=== PATIENT | male | born 1940 | race Caucasian/White ===

== ENCOUNTER 2019-03-06 11:40 | Inpatient (IN) | payer OTHER ==
[~2019-03-06] VITALS: Ht 182.9 cm; Wt 90.7 kg
--- NOTE | 2019-03-06 11:56 | NUR ---
SE RECIBE PTE ALERTA Y ORIENATDO X3 QUIEN REFIERE DOLOR ABDOMINAL Y VOMITOS X2 HOY. SE ML S/V Y SE UBICA PTE EN AREA DE OBSERVACION.
--- NOTE | 2019-03-06 13:08 | NUR ---
PACIENTE ALERTA Y ORIENTADO X3, CON BUEN PATRON RESPIRATORIO Y SIGNOS VITALES ESTABLES, REFIERE LEVE DOLOR EN EL ABDOMEN. SE ABRE VENA CON ANGIO #20, SE ML MUESTRAS BAJO MEDIDAS ASEPTICAS. SE ADMINISTRA MEDICAMENTO LIVIA ORDENADO, Y SE COLOCA VIRGIL A BAJAR A 150ML/HR. SE ROLAND TRANQUILO EN JOHNNY.
--- NOTE | 2019-03-06 16:20 | NUR ---
SE RECIBE MASCULINO ALERTA Y ORIENTADO POR WILL ESFERAS, EN JOHNNY CON BARANDAS ELEVADAS Y SEGURAS. AREA DE VENOPUNCION FERNY DE EDEMA O ENROJECIMIENTO. RECIBIENDO IVF ORDENDO. SE INSERTA TNG #18 EN FOSA NASAL DERECHA. PRESENTA RESIDUAL GASTRICO COLOR CREMA.
[2019-03-10] MEDS ORDERED: AMLODIPINE BESYL5 MG PO (08:12)
[2019-03-10] MEDS ORDERED: PANTOPRAZOLE SO40 MG PO (08:12)
[2019-03-13] MEDS ORDERED: REGLAN5 MG/5 ML PO (14:26)
== END 2019-03-13 18:03 | disposition home or self-care (01) | DRG 336 ==
LOC: ER 11:40 → SURG 20:52
PROVIDERS: ADMIT Surgery
PROC: BW21Y0Z Computerized Tomography (CT Scan) of Abdomen and Pelvis using Other Contrast, Unenhanced and Enhanced (ICD-10-PCS; 2019-03-06)
PROC: 30233R1 Transfusion of Nonautologous Platelets into Peripheral Vein, Percutaneous Approach (ICD-10-PCS; 2019-03-06)
PROC: B246ZZZ Ultrasonography of Right and Left Heart (ICD-10-PCS; 2019-03-06)
PROC: 0WQF0ZZ Repair Abdominal Wall, Open Approach (ICD-10-PCS; 2019-03-07)
PROC: 0DNH0ZZ Release Cecum, Open Approach (ICD-10-PCS; principal; 2019-03-07 11:45)
DX: K56.51 Intestinal adhesions [bands], with partial obstruction (principal); N17.8 Other acute kidney failure; J98.11 Atelectasis; I25.810 Atherosclerosis of coronary artery bypass graft(s) without angina pectoris; K42.9 Umbilical hernia without obstruction or gangrene; E03.8 Other specified hypothyroidism; E86.0 Dehydration; E87.8 Other disorders of electrolyte and fluid balance, not elsewhere classified; N20.0 Calculus of kidney; K57.30 Diverticulosis of large intestine without perforation or abscess without bleeding; D69.49 Other primary thrombocytopenia; R14.0 Abdominal distension (gaseous); Z98.61 Coronary angioplasty status; I11.9 Hypertensive heart disease without heart failure

== ENCOUNTER 2019-03-26 13:12 | Outpatient (CLI) | payer OTHER ==
[~2019-03-26 13:12] MED LIST: AMLODIPINE BESYL5 MG PO; PANTOPRAZOLE SO40 MG PO; REGLAN5 MG/5 ML PO
== END 2019-03-26 16:29 | disposition home or self-care (01) ==
LOC: RAD 13:12
DX: K56.690 Other partial intestinal obstruction (principal)